=== PATIENT | male | born 1995 | race Two or more races ===

== ENCOUNTER 2024-08-31 23:16 | Emergency (ER) | payer MEDICAID, SELFPAY ==
[2024-08-31 23:17] VITALS: BMI 22.7
--- NOTE | 2024-08-31 23:58 | PC.NURSE ---
Pt did not answer when name was called in the lobby and was not found outside.
[2024-09-01] VITALS (9 sets, daily range): BP systolic 109–147; BP diastolic 64–88; PULSE 50–68; RESP 14–20; TEMP 36.6–36.9; O2SAT 97–99
--- NOTE | 2024-09-01 00:22 | PD.EDRME ---
Rapid Medical Screening Exam RME Arrival date/time: 08/31/24 23:16 Chief Complaint: Depression Time Seen by Provider: 08/31/24 23:47 Vital signs: Vital Signs Temperature 98.4 F 09/01/24 00:18 Pulse Rate 68 09/01/24 00:18 Respiratory Rate 20 09/01/24 00:18 Blood Pressure 128/76 09/01/24 00:18 Pulse Oximetry (%) 98 09/01/24 00:18 Oxygen Delivery Method Room Air 09/01/24 00:18 Vital signs reviewed by provider: Yes RME Narrative: 29-year-old male presents to the ED with depression and severe anxiety with suicidal ideation. He is experiencing family problems and is unable to handle his situation. He has a plan which is to walk out into oncoming traffic. He denies any homicidal ideation. I have greeted and performed a focused initial assessment of this patient. A comprehensive ED assessment and evaluation of the patient, analysis of all test results, and completion of the medical decision making process will be conducted by additional ED providers.
[2024-09-01 01:43] LABS: Basophils # (Auto) 0.1 Thou/mm3 (0.0-0.2); Basophils % (Auto) 1 % (0-2.5); Eosinophils # (Auto) 0.1 Thou/mm3 (0.0-0.5); Eosinophils % (Auto) 1 % (0-10); Hematocrit 40.5 % (41.0-53.0); Hemoglobin 13.9 g/dL (13.5-16.0); Immature Granulocytes % (Auto) 0 % (0-0); Immature Granulocytes Auto 0.02 Thou/mm3 (0.00-0.00); Lymphocytes # (Auto) 1.4 Thou/mm3 (1.0-4.8); Lymphocytes % (Auto) 19 % (10-50); Mean Corpuscular HGB Conc 34.3 g/dl (31.0-37.0); Mean Corpuscular Hemoglobin 30.1 pg (25.0-35.0); Mean Corpuscular Volume 88 fL (80-100); Monocytes # (Auto) 0.4 Thou/mm3 (0.0-0.8); Monocytes % (Auto) 6 % (0-12); Neutrophils # (Auto) 5.5 Thou/mm3 (1.8-7.7); Neutrophils % (Auto) 73 % (37-80); Nucleated Red Blood Cell % 0 /100 WBC (0); Platelet Count 265 Thou/mm3 (140-440); RDW Standard Deviation 43.5 fL (35.1-43.9); Red Blood Count 4.62 Miln/mm3 (4.50-5.90); White Blood Count 7.5 Thou/mm3 (3.8-10.6)
--- NOTE | 2024-09-01 02:00 | EDNOTE_ITS ---
ED Psych RME/HPI General Chief Complaint: Depression Stated Complaint: DEPRESSION/ ANXIETY Time Seen by Provider: 08/31/24 23:47 Arrival date/time: 08/31/24 23:16 Limitations: no limitations RME / HPI RME / HPI Narrative: Dr. Mendoza's Main ED Evaluation: 29yo male with a history of anxiety, depression presents to the ED for severe anxiety. Patient states he's been having severe anxiety without a reason lately, reporting he wants to ride his bike into traffic. He denies any HI or hallucinations. He is not on any medications. Patient states his thoughts of SI have subsided while here in the ED. Related Data Previous Rx's ?Medication ?Instructions ?Recorded acetaminophen-caffeine 500 mg-65 1 tab PO Q8H PRN pain #30 tabs 08/12/23 mg tablet (Excedrin Tension Headache) ibuprofen 600 mg tablet 600 mg PO Q8H PRN fever or p ain 08/12/23 #20 tabs Allergies Allergy/AdvReac Type Severity Reaction Status Date / Time No Known Allergies Allergy Verified 08/03/23 13:44 Review of Systems Review of Systems Systems Reviewed: All systems reviewed, normal except as documented Past Medical History Social History SMOKING STATUS: Never smoker ED Exam General Limitations: Present no limitations General appearance: Present alert and in no apparent distress Head Head exam: Present atraumatic Eye Eye exam: Present normal appearance, PERRL and EOMI ENT ENT exam: Present normal exam, normal oropharynx and mucous membranes moist Neck Neck exam: Present normal inspection, full ROM and trachea midline Chest Chest inspection: Present normal inspection and symmetric chest wall rise Respiratory Respiratory exam: Present normal lung sounds bilaterally Cardiovascular Cardiovascular exam: Present regular rate, normal rhythm and normal heart sounds Abdominal Exam Abdominal exam: Present soft and normal bowel sounds Extremities Exam Extremities exam: Present normal inspection and full ROM Back Exam Back exam: Present normal inspection and full ROM Neurological Exam Neurological exam: Present alert, oriented X3 and CN II-XII intact Psychiatric Psychiatric exam: Present normal affect and normal mood Skin Skin exam: Present warm, dry, intact and normal color Course Quality Measures none Orders Category Date Time Status 1799 Psychiatric Hold NOW Care 09/01/24 02:15 Ordered Acetaminophen Stat Lab 09/01/24 01:34 Completed Alcohol, Blood Medical Stat Lab 09/01/24 01:34 Completed Alcohol, Urine Stat Lab 09/01/24 01:39 Completed Basic Metabolic Panel Stat Lab 09/01/24 01:34 Completed CBC Stat Lab 09/01/24 01:34 Completed Drug Screen,Urine Stat Lab 09/01/24 01:39 Completed Vital Signs Vital signs: Vital Signs Temperature 98.4 F 09/01/24 00:18 Pulse Rate 68 09/01/24 00:18 Respiratory Rate 20 09/01/24 00:18 Blood Pressure 128/76 09/01/24 00:18 Pulse Oximetry (%) 98 09/01/24 00:18 Oxygen Delivery Method Room Air 09/01/24 00:18 Psych MDM Narrative MDM Narrative:: Scribe Attestation: 09/01/24 - Kaela Telles am scribing for and in the presence of Dr. Mendoza. Patient placed on a 1799 hold. Patient was placed in observation for treatment and monitoring of psychiatric symptoms, at 0315 09/01/2024. Symptoms consist of suicidal ideation and depression. Treatment plan includes psychiatric consult, reassessments, and possible placement into psychiatric facility. Patient is medically clear for crisis evaluation. 0600: Care signed out to Dr. Blake (emergency physician). Past medical, surgical, social and family history reviewed. Vitals and home medications reviewed. Results and treatment plan discussed. They will assume the care of the patient at this time and will follow the patient, pending crisis evaluation. Patient data External records reviewed:: [facility] previous records (Per chart review, patient has no relevant previous ED visits or admissions to this facility.) Clinical information provided by:: patient Social determinants that could affect healthcare access:: mental health Patient has the following chronic illnesses:: anxiety, depression How is presenting disease/condition affected by chronic disease/condition?: caused by Evaluation data The following diagnostics were reviewed and interpreted by me:: lab results Lab and/or radiology exams considered but not ordered:: none Interpretation Summary: CBC is normal, CMP is normal, Acetaminophen is negative, UDS is negative, Urine alcohol is negative, according to my interpretation. Medications / Prescriptions Medications or Prescriptions considered but not ordered:: none Medication administrations:: see above, if any Consultations Consultation(s) initiated? (list below): No Diagnosis Psych Differential Diagnosis: suicidal ideation, acute anxiety and other (drug use) Most likely diagnosis given after review of the tests above:: see clinical impression below Admission Indicated Admission indicated?: not indicated Admission Request Was there a request for admission?: No Disposition Plan Disposition Plan: other (specify) (Signed out to Dr. Blake at 0600 pending crisis evaluation.) Discharge Plan Prescriptions/Referrals Prescriptions/Med Rec: No Action Excedrin Tension Headache 500-65 mg tablet 1 tab PO Q8H PRN (Reason: pain) Qty: 30 0RF ibuprofen 600 mg tablet 600 mg PO Q8H PRN (Reason: fever or pain) Qty: 20 0RF Referrals: Temporary Provider,ED [Physician] - In 1 week Problem List Clinical Impression: Suicidal ideation, Anxiety Patient/Caregiver Discharge Instructions Print Language: Indian
[2024-09-01 02:32] LABS: Alcohol, Urine Negative (Negative); Amphetamine/Methamp Scrn,U Negative (Negative); Barbiturate Screen,Urine Negative (Negative); Benzodiazepines Screen,Urine Negative (Negative); Benzoylecgonine Screen, Ur Negative (Negative); Fentanyl Screen,Urine Negative (Negative); Opiate Screen,Urine Negative (Negative); THC Screen,Urine Negative (Negative)
[2024-09-01 02:32] LABS: Acetaminophen < 2.0 mcg/mL (10.0-20.0); Alcohol, Blood Medical < 3.0 mg/dL (0-10.0); Anion Gap 9 (7-16); BUN/Creatinine Ratio 18 Ratio (12-20); Blood Urea Nitrogen 21 mg/dL (9-23); Calcium 9.2 mg/dL (8.3-10.6); Chloride 107 mMol/L (98-107); Creatinine (Component) 1.2 mg/dL (0.6-1.3); Estimated Creatinine Clearance 80.5 mL/min (>60); Glucose 104 mg/dL (74-106); Osmolality,Calculated 287 (275-295); Potassium 4.3 mMol/L (3.4-5.1); Sodium 143 mMol/L (136-145); eGFR > 60 See Note
--- NOTE | 2024-09-01 06:30 | PC.NURSE ---
Pt resting with eyes closed. Respirations are even and unlabored. No s/s of acute distress. 1:1 sitter at bedside. Plan of care ongoing.
--- NOTE | 2024-09-01 06:32 | EDNOTE_ITS ---
Emergency Room Addendum <Britta Ramires - Last Filed: 09/01/24 12:45> Addendum Narrative: 0600: Care assumed from Dr. Gonzales, the previous shift emergency physician. Past medical, surgical, social and family history reviewed. Vitals and home medications reviewed. I will assume the care of the patient at this time, pending crisis evaluation. Please refer to the emergency department record for history and examination from initial visit.? Physical exam by me shows patient under no acute distress at this time. 1243: Patient placed on a 5150 hold. Patient got accepted to [facility]. <yMke Blake MD - Last Filed: 09/01/24 12:52> Addendum Narrative: 0600: Care assumed from Dr. Gonzales, the previous shift emergency physician. Past medical, surgical, social and family history reviewed. Vitals and home medications reviewed. I will assume the care of the patient at this time, pending crisis evaluation. Please refer to the emergency department record for history and examination from initial visit.? Physical exam by me shows patient under no acute distress at this time. 1243: Patient placed on a 5150 hold. Patient got accepted to [facility]. Patient has remained comfortable throughout the shift and at 1251 hrs. he is comfortable awaiting transport to [facility]. Evidently they will not be able to take until 1930 hrs. this evening. Assuming the patient remains comfortable and no further intervention will probably be indicated
--- NOTE | 2024-09-01 08:03 | PC.NURSE ---
Patient laying in gurney, patient ugandan, denies suicidal ideation at this time, c/o anxiety 2nd to argument with spouse, and also c/o left knee pain after falling in parking lot yesterday. Patient with sitter at bed side.
--- NOTE | 2024-09-01 12:00 | PC.SS ---
Patient is a 29 year-old male who presented to the Emergency Department for depression/anxiety. Patient was placed on a 1799 by ED attending due to safety on 09/01/24 at 0315. ASWLai and ASW Kisha Bugros met with patient [id number] to complete assessment. ASW introduced self, role, and reason for assessment. ASW disclosed limits of confidentiality as well. Patient is Bengali speaking. Patient appeared alert and oriented to self, place, and situation. Patient presents with flat affect, sad and appears to be depressed. Patient was able to engage in assessment appropriately. Otherwise, patient appears well kempt and well groomed. Patient reports he lives at home, alone. Patient confirmed demographic information. Patient reports he is able to ambulate independently and complete his own ADL?s. No use of DME reported. Patient states he works in the [employer] to support Patient reports he follows primary care with [facility]. Patient reports what brought him in to the ED last night was because he was feeling suicidal as he found out his , Faith had been cheating on him. Patient reports he has suspected his cheating and yesterday he confirmed this to be true. Patient states he has been very sad since he learned about the news and states he was suicidal with plan to run into traffic with his bicycle. Patient reports he felt as he was having an anxiety attack when finding out the news. Patient reports his , Faith resides in [facility] with their two children of ages 13 and 3. Per patient, he came to the [place] to work and provide for his family. The patient reports, they currently communicate via [employer]. Patient reports to continue feeling sad and reports he does not want to be alone during this time. Additionally, patient continues reporting suicidal ideation. Patient denies homicidal ideation. Patient denies having visual and auditory hallucinations. Patient denied past suicidal attempts. Patient denies being diagnosed with mental health, no reported psychiatric medication being taken. Patient denies ever being placed on a 5150-hold in the past. Patient denies substance use. Additionally toxicology is negative. Patient reported high risk on the [place] Scale screening. The patient presents with little to no support from family/friends. Patient provided verbal consent to speak with his friend, Marylin Clarke . In speaking with Marylin, she denies that the patient has mental health diagnoses or any incidents of suicide in the past. Per Marylin, the patient lives alone and has minimal support, Marylin informs to her knowledge, she reports the patient had been feeling depressed. Per Marylin, she is currently at work and unable to provide support to the patient at this time. After clinical consultation with Liat Michel, the patient will be placed on a 5150 Hold for danger to self. ED attending Provider and bed side nurse updated on hold status. Patient was provided with advisement. ASW has sent out packet and patient is currently pending LPS placement.
--- NOTE | 2024-09-01 12:27 | PC.NURSE ---
Lorrie from [facility], is Accepting to their facility by Dr. Canales, needs to arrive to their facility at 2000, nurse to nurse 1900 , unit to be determined.
--- NOTE | 2024-09-01 13:12 | PC.SS ---
Addendum entered by MAYITO Swanson 09/01/24 13:48: ETA 1900 by [facility], bed side nurse aware. Original Note: Per patient request, notified his friend, Marylinlopez Clarke he would be transferred to [facility].
--- NOTE | 2024-09-01 20:19 | PC.NURSE ---
Report called to [facility]. EMS here now to transfer.
== END 2024-09-01 20:23 ==
PROVIDERS: Physician Assistant; Emergency Provider Emergency Medicine; PCP Family Medicine
DX: R45.851 Suicidal ideations (principal); F41.9 Anxiety disorder, unspecified; F32.A Depression, unspecified
CPT/HCPCS: 36415; 80048; 80307; 80320; 80329; 85025; 90839; 96127; 99285; G0480